=== PATIENT | female | born 2000 | race Caucasian/White ===

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

== ENCOUNTER 2022-09-25 11:48 | Emergency (ER) | payer OTHER ==
[~2022-09-25] VITALS: Ht 160 cm; Wt 66.4 kg
[~2022-09-25 11:48] MED LIST: IBUP-1022 PO
[2022-09-25 13:11] LABS: BASO % 0.2 % (0.0-1.0); EOS % 0.1 % (0.0-3.0); HEMATOCRIT 42.9 % (36.0-47.0); HEMOGLOBIN 15.3 g/dl (12.0-15.5); LYMPH % 20.6 % (24.0-44.0); MEAN CORPUSCULAR HEMOGLOBIN 30.4 pg (27.0-33.0); MEAN CORPUSCULAR HGB CONC 35.7 g/dl (32.0-36.5); MEAN CORPUSCULAR VOLUME 85.3 fl (80.0-96.0); MONO # 0.7 10^3/uL (0.0-0.8); MONO % 6.8 % (2.0-8.0); NEUTROPHILS # 6.9 10^3/uL (1.5-8.5); PLATELET COUNT, AUTOMATED 305 10^3/uL (150-450); RED BLOOD COUNT 5.03 10^6/uL (4.00-5.40); WHITE BLOOD COUNT 9.6 10^3/uL (4.0-10.0)
[2022-09-25 13:38] LABS: BLOOD UREA NITROGEN 12 MG/DL (9-23); CALCIUM LEVEL 9.8 MG/DL (8.5-10.1); CARBON DIOXIDE LEVEL 28 MMOL/L (20-31); CHLORIDE LEVEL 101 MMOL/L (98-107); CREATININE FOR GFR 0.71 MG/DL (0.55-1.30); GLUCOSE, FASTING 81 MG/DL (60-100); POTASSIUM SERUM 4.1 MMOL/L (3.5-5.1); SODIUM LEVEL 134 MMOL/L (136-145)
[2022-09-25] MEDS ORDERED: KETOROLAC 30 MG/ML 1ML VIAL IV ONE (16:15)
[2022-09-25 16:39] LABS: APPEARANCE, URINE CLEAR (CLEAR); BACTERIA, URINE AUTO NEGATIVE (NEGATIVE); BILIRUBIN, URINE AUTO NEGATIVE (NEGATIVE); BLOOD, URINE BLOOD NEGATIVE (NEGATIVE); COLOR, URINE STRAW (YELLOW); GLUCOSE, URINE (UA) AUTO NEGATIVE (NEGATIVE); KETONE, URINE AUTO TRACE mg/dL (NEGATIVE); LEUKOCYTE ESTERASE, URINE AUTO NEGATIVE (NEGATIVE); NITRITE, URINE AUTO NEGATIVE (NEGATIVE); PROTEIN, URINE AUTO NEGATIVE (NEGATIVE); RBC, URINE AUTO 0 /HPF (0-3); SPECIFIC GRAVITY URINE AUTO 1.008 (1.002-1.035); SQUAMOUS EPITHELIAL CELL UR AU 1 /HPF (0-6); UROBILINOGEN, URINE AUTO 0.2 mg/dL (0.0-2.0); WBC, URINE AUTO 0 /HPF (0-3)
[2022-09-25] MEDS ORDERED: ISOVUE-370 76% 100ML VIAL As Ordered ONE (16:53)
[2022-09-25 18:25] VITALS: BP 120/68
[2022-09-25] MEDS ORDERED: IBUP-1022 PO (19:08)
[2022-09-25 21:18] LABS: GC DNA AMPLIFICATION NEGATIVE (NEGATIVE)
== END 2022-09-25 19:32 | disposition home or self-care (01) ==
LOC: M ED 11:48
DX: R10.2 Pelvic and perineal pain (principal); Z87.42 Personal history of other diseases of the female genital tract; Z79.1 Long term (current) use of non-steroidal anti-inflammatories (NSAID)
CPT/HCPCS: 74177; 76830; 76856; 80048; 81001; 84702; 85025; 87661; 87810; 87850; 93976; 96374; 99283; J1885; Q9967

== ENCOUNTER 2022-10-16 19:00 | Emergency (ER) | payer OTHER ==
[~2022-10-16] VITALS: Ht 162.6 cm; Wt 63.0 kg
[2022-10-16] MEDS ORDERED: methylPREDNISolone 125MG 2ML VIAL IM ONE (21:20)
[2022-10-16] MEDS ORDERED: ACETAMINOPHEN 500 MG TAB PO ONE (21:20)
[2022-10-16] MEDS ORDERED: METHOCARBAMOL 1,000 MG/10 ML VIAL IM ONE (21:20)
[2022-10-16] MEDS ORDERED: METHOCARBAMOL 1,000 MG/10 ML VIAL IV ONE (22:05)
[2022-10-16 22:40] LABS: HCG, SERUM QUALITATIVE NEGATIVE (NEGATIVE)
[2022-10-17] MEDS ORDERED: METH-1164 PO (00:15)
[2022-10-17] MEDS ORDERED: IBUP-1022 PO (00:15)
[2022-10-17] MEDS ORDERED: PRED20TA PO (00:15)
[2022-10-17 00:32] VITALS: BP 114/66
== END 2022-10-17 00:36 | disposition home or self-care (01) ==
LOC: EDBD 19:00 → M ED 19:00
DX: M54.50 Low back pain, unspecified (principal); Z79.52 Long term (current) use of systemic steroids; Z79.1 Long term (current) use of non-steroidal anti-inflammatories (NSAID)
CPT/HCPCS: 72110; 81001; 84703; 96372; 96374; 99284; J2800; J2930